=== PATIENT | male | born 1995 | race Caucasian/White ===

== ENCOUNTER 2020-08-27 13:50 | Outpatient (CLI) | payer BC, OTHER ==
[~2020-08-27 13:50] MED LIST: Magnevist 469MG/ML 20 ML VIAL ONE
== END 2020-08-27 13:51 | disposition home or self-care (01) ==
LOC: BICMRI 13:50
PROVIDERS: ATTEND Nurse Practitioner Acute Care
DX: Z86.69 Personal history of other diseases of the nervous system and sense organs (principal); M47.812 Spondylosis without myelopathy or radiculopathy, cervical region; Z98.890 Other specified postprocedural states
CPT/HCPCS: 70553; 72156; A9579